=== PATIENT | female | born 1940 | race Caucasian/White ===

== ENCOUNTER 2017-10-08 09:31 | Emergency (ER) | payer MEDICARE, OTHER ==
[~2017-10-08] VITALS: Ht 157.5 cm; Wt 87.1 kg
[~2017-10-08 09:31] MED LIST: CYMBALTA60 MG PO; DILTIAZEM 24HR120 M1 PO; DIOVAN80 MG PO; FERROUS SULFAT325 MG PO; GLUCOPHAGE XR500 MG PO; INVOKANA PO; LYRICA150 MG PO; OMEPRAZOLE40 MG PO; OXYBUTYNIN CHLO10 MG PO; OXYBUTYNIN CHLO15 MG PO; SIMVASTATIN20 MG PO
[2017-10-08] MEDS ORDERED: TETANUS/DIPHTHERIA TOX ADULT 0.5 ML SYR IM ONE (10:00)
--- NOTE | 2017-10-08 10:53 | Diagnostic Imaging Report ---
PROCEDURE:KNEE RIGHT THREE VIEWS TECHNIQUE:AP, lateral and oblique views right knee INDICATION:Right knee pain status post fall COMPARISON:None. FINDINGS: 3 compartment joint space narrowing (greatest in the medial compartment) with small marginal osteophytes and subchondral sclerosis. No effusion. Intact regional skeleton. CONCLUSION: Mild to moderate degenerative change without acute traumatic injury. Dictated by: Yadiel Hinson M.D. on 10/08/2017 at 10:56 Electronically approved by: Yadiel Hinson M.D. on 10/08/2017 at 10:56
--- NOTE | 2017-10-08 10:54 | Diagnostic Imaging Report ---
PROCEDURE:PELVIS AP 1-2 VIEWS TECHNIQUE:Portable AP pelvis INDICATION:Pain status post fall COMPARISON:None. FINDINGS: The pelvic ring and image regional skeleton are intact. Moderate degenerative changes at the hips. CONCLUSION: No evidence of acute traumatic injury. Dictated by: Yadiel Hinson M.D. on 10/08/2017 at 10:57 Electronically approved by: Yadiel Hinson M.D. on 10/08/2017 at 10:57
--- NOTE | 2017-10-08 11:12 | Diagnostic Imaging Report ---
History: Fall, pain Comparison studies:None Technique: Axial images were obtained from the brain and cervical spine. Coronal and sagittal images reconstructed from the axial data. Intravenous contrast: None Findings: Head CT: Scalp/skull: No abnormalities. No fractures, blastic or lytic lesions. Brain sulci: Appropriate for age. Ventricles: Normal in size and configuration. No hydrocephalus. Extra-axial spaces: No masses. No fluid collections. Parenchyma: No abnormal densities. No masses, hemorrhage, acute or chronic cortical vascular insults. Sellar/suprasellar region: No abnormalities. Craniocervical junction: Patent foramen magnum. No Chiari one malformation. Atherosclerotic calcifications of the carotid siphons and vertebral arteries Cervical spine CT: Fractures: None. Soft tissues: No gross abnormalities. Atlantoaxial articulation: No acute abnormality. Mild degenerative changes. Alignment: Normal lordosis. No scoliosis. Cervicomedullary junction: No abnormalities. Patent foramen magnum. Vertebrae: No infection or neoplasm. Degenerative changes: Facet hypertrophy and uncinate process hypertrophy results in moderate foraminal narrowing at C5-6. Disc degeneration with decreased intervertebral space, endplate sclerosis and posterior disc osteophyte complexes at C5-6 and C6-7 results in mild canal stenosis. Incidental findings: Atherosclerotic calcifications of the carotid bulbs. Impression: Head CT: 1. No acute intracranial abnormality. Cervical spine CT: 1. No acute abnormalities. 2. Cannot exclude ligament, spinal cord and or vascular abnormalities on the basis of this examination. Signed by: DR Paulino Clayton M.D. on 10/08/2017 11:08 AM
[2017-10-08] MEDS ORDERED: BACITRACIN ZINC 0.9GM TP ONE (11:45)
[2017-10-08 12:18] VITALS: BP 174/78
== END 2017-10-08 12:20 | disposition home or self-care (01) ==
LOC: ER 09:31
DX: S00.83XA Contusion of other part of head, initial encounter (principal); S80.01XA Contusion of right knee, initial encounter; W01.0XXA Fall on same level from slipping, tripping and stumbling without subsequent striking against object, initial encounter; Y92.019 Unspecified place in single-family (private) house as the place of occurrence of the external cause; M17.11 Unilateral primary osteoarthritis, right knee; Z23 Encounter for immunization
CPT/HCPCS: 70450; 72125; 72170; 90471; 90714; 99283